=== PATIENT | male | born 1995 | race Caucasian/White ===

== ENCOUNTER 2020-05-05 10:09 | Emergency (ER) | payer SELFPAY ==
[~2020-05-05] VITALS: Ht 187.9 cm; Wt 167.8 kg
[~2020-05-05 10:09] MED LIST changes: -AMOXICILLIN500 M3 PO
[2020-05-05 10:16] VITALS: BP 156/83
[2020-05-05] MEDS ORDERED: AMOXICILLIN500 M3 PO (10:30)
== END 2020-05-05 10:50 | disposition home or self-care (01) ==
LOC: ED 10:09
DX: H66.93 Otitis media, unspecified, bilateral (principal); I10 Essential (primary) hypertension; Z79.899 Other long term (current) drug therapy

== ENCOUNTER → 2020-05-05 | Outpatient (CLI) | payer SELFPAY ==
[~2020-05-05] MED LIST: AMOXICILLIN500 M3 PO; LOTRISONE 0.05%1 CRE TP; MOTRIN800 MG PO; NAPROSYN500 MG PO; PREDNISONE10 MG PO
== END | disposition home or self-care (01) ==
LOC: COVID19 11:34
PROVIDERS: ATTEND Internal Medicine
DX: Z20.828 Contact with and (suspected) exposure to other viral communicable diseases (principal)

== ENCOUNTER 2021-06-04 09:43 | Emergency (ER) | payer SELFPAY ==
[~2021-06-04] VITALS: Wt 113.4 kg
[~2021-06-04 09:43] MED LIST changes: +AMOXICILLIN500 M3 PO
[2021-06-04 09:50] VITALS: BP 120/70
== END 2021-06-04 11:35 | disposition home or self-care (01) ==
LOC: ED 09:43
DX: R05.9 Cough, unspecified (principal); Z20.822 Contact with and (suspected) exposure to COVID-19; R51.9 Headache, unspecified; E66.01 Morbid (severe) obesity due to excess calories; Z98.890 Other specified postprocedural states

== ENCOUNTER 2022-08-11 16:24 | Emergency (ER) | payer BC ==
[~2022-08-11] VITALS: Ht 187.9 cm; Wt 176.9 kg
[2022-08-11 16:34] VITALS: BP 154/104
[2022-08-11] MEDS ORDERED: SEPTDS PO (16:45)
[2022-08-11] MEDS ORDERED: CEPHALEXIN500 M1 PO (16:45)
== END 2022-08-11 16:54 | disposition home or self-care (01) ==
LOC: ED 16:24
DX: L05.91 Pilonidal cyst without abscess (principal)

== ENCOUNTER 2024-07-18 15:30 | Emergency (ER) | payer BC ==
[~2024-07-18] VITALS: Ht 187.9 cm; Wt 203.4 kg
[~2024-07-18 15:30] MED LIST changes: +CEPHALEXIN500 M1 PO; +SEPTDS PO
[2024-07-18 15:47] VITALS: BP 117/116
[2024-07-18] MEDS ORDERED: GABAPENTIN600 MG PO (15:48)
[2024-07-18] MEDS ORDERED: SODIUM CHLORIDE 0.9% 1,000 ML IV ONE (16:15)
[2024-07-18 16:33] LABS: BILIRUBIN Negative (Negative); BLOOD Negative (Negative); CLARITY Clear (Clear); COLOR Yellow (Yellow); GLUCOSE 3+ (Negative); KETONE 1+ (Negative); LEUKO ESTERASE Negative (Negative); NITRITE Negative (Negative); SPECIFIC GRAVITY >= 1.030 (1.001-1.030); UROBILINOGEN 0.2 E.U./dl (0.0-1.0)
[2024-07-18 16:49] LABS: BASO % 0.5 % (0.0-1.0); EOS # 0.1 10*3/uL (0.0-0.4); EOS % 1.3 % (1.0-4.0); HEMATOCRIT 40.9 % (42.0-52.0); MEAN CELL VOLUME 72.9 fl (80.0-94.0); MEAN CORPUSCULAR HGB 22.1 pg (27.0-31.0); MEAN CORPUSCULAR HGB CONC 30.3 g/dl (33.0-37.0); MEAN PLATELET VOLUME 10.4 fl (9.6-12.3); MONO # 0.5 10*3/uL (0.1-1.0); MONO % 8.3 % (3.0-9.0); NEUT # 4.8 10*3/uL (2.3-7.9); NEUT % 77.4 % (47.0-73.0); PLATELET COUNT AUTOMATED 178 10*3/uL (130-400); RED BLOOD COUNT 5.61 10*6/uL (4.50-5.90); RED CELL DISTRI WIDTH 18.2 % (0-14.5); WHITE BLOOD COUNT 6.2 10*3/uL (4.8-10.8)
[2024-07-18 17:22] LABS: BUN 13 mg/dl (9-23); CHLORIDE 94 mmol/L (98-107)
[2024-07-18] MEDS ORDERED: INSULIN REGULAR, HUMAN 15 UNIT IV ONE (17:45)
[2024-07-18] MEDS ORDERED: INSULIN REGULAR, HUMAN 1 UNIT/0.01 ML IV ONE (17:50)
[2024-07-18] MEDS ORDERED: METFORMIN HYDR500 MG PO (18:18)
== END 2024-07-18 18:56 | disposition home or self-care (01) ==
LOC: ED 15:30
PROVIDERS: Internal Medicine
DX: E11.9 Type 2 diabetes mellitus without complications (principal); I10 Essential (primary) hypertension